=== PATIENT | female | born 1975 | race Caucasian/White ===

== ENCOUNTER 2016-07-19 15:30 | Emergency (ER) | payer OTHER ==
[~2016-07-19] VITALS: Ht 167.6 cm; Wt 72.0 kg
[~2016-07-19 15:30] MED LIST: CYM/30 PO; DOXE10CA PO; DULO60CA44 PO; GLC/500 PO; LEVO25TA5 PO; OMEP20TA PO; ONDA4TAB65 PO; OXYC1CAP5 PO; QUET1TAB34 PO; SENN-65 PO; TIZA2CAP PO
[2016-07-19 15:38] VITALS: TEMP 37.1; Ht 167.6 cm; Wt 72.0 kg
[2016-07-19 16:21] LABS: BASO % 0.5 %; BASO ABS # 0.03 K/uL (0-0.2); COMPLETE YES; HEMATOCRIT 41.4 % (37-47); IG% 0.5 %; LYMPH % 22.4 %; LYMPH ABS # 1.46 K/uL (1.2-3.4); MEAN CELL VOLUME 96.5 fL (80-100); MEAN CORPUSCULAR HEMOGLOBIN 32.2 pg (25-34); MEAN CORPUSCULAR HGB CONC 33.3 g/dl (32-36); MEAN PLATELET VOLUME 11.8 fL (7.4-10.4); MONO % 5.8 %; NEUT % 66.8 %; PLATELET COUNT 220 K/uL (130-400); RED BLOOD COUNT 4.29 M/uL (4.2-5.4); WHITE BLOOD COUNT 6.51 K/uL (4.8-10.8)
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
[2016-07-19 16:41] LABS: BUN/CREATININE RATIO 24.1 (10-20); CALCIUM 8.7 mg/dl (8.5-10.1); CREATININE 0.55 mg/dl (0.60-1.20); POTASSIUM 3.5 mmol/L (3.5-5.1)
[2016-07-19 16:44] LABS: ALB/GLOB RATIO 1.4 (0.9-2)
[2016-07-19 17:12] VITALS: BP 104/67; PULSE 80; O2SAT 100
[2016-08-02] MEDS ORDERED: POLY335025 PO (08:09)
[2016-08-02] MEDS ORDERED: LEVOIUD INT UTER (08:53)
== END 2016-07-19 17:38 | disposition home or self-care (01) ==
LOC: C.EDB 15:31 → C.EDC 17:38
DX: K62.5 Hemorrhage of anus and rectum (principal); G82.20 Paraplegia, unspecified; Z87.828 Personal history of other (healed) physical injury and trauma; F41.9 Anxiety disorder, unspecified; F31.9 Bipolar disorder, unspecified; E03.9 Hypothyroidism, unspecified; N31.9 Neuromuscular dysfunction of bladder, unspecified; Z80.9 Family history of malignant neoplasm, unspecified; Z83.3 Family history of diabetes mellitus; Z82.49 Family history of ischemic heart disease and other diseases of the circulatory system; Z79.899 Other long term (current) drug therapy

== ENCOUNTER 2016-08-02 15:38 | Emergency (ER) | payer OTHER ==
[~2016-08-02 15:38] MED LIST changes: -GLC/500 PO; +LEVOIUD INT UTER; -OMEP20TA PO; -ONDA4TAB65 PO; +POLY335025 PO; -QUET1TAB34 PO; -SENN-65 PO
[2016-08-02 15:48] VITALS: TEMP 36.8; Ht 167.6 cm
[2016-08-02] MEDS ORDERED: CEFTRIAXONE SOD INJ 1 GM ADDVIAL IV STA (16:13)
[2016-08-02] MEDS ORDERED: SODIUM CHLORIDE 0.9% 1000ML 1,000 ML IV STA (16:13)
[2016-08-02] MEDS ORDERED: FLUC150T PO (16:21)
[2016-08-02 16:39] LABS: BASO % 0.7 %; BASO ABS # 0.04 K/uL (0-0.2); COMPLETE YES; EOS % 6.3 %; HEMATOCRIT 39.4 % (37-47); IG% 1.1 %; LYMPH % 39.2 %; LYMPH ABS # 2.24 K/uL (1.2-3.4); MEAN CELL VOLUME 97.5 fL (80-100); MEAN CORPUSCULAR HEMOGLOBIN 31.9 pg (25-34); MEAN CORPUSCULAR HGB CONC 32.7 g/dl (32-36); MEAN PLATELET VOLUME 11.4 fL (7.4-10.4); MONO % 9.3 %; NEUT % 43.4 %; PLATELET COUNT 255 K/uL (130-400); RED BLOOD COUNT 4.04 M/uL (4.2-5.4); WHITE BLOOD COUNT 5.71 K/uL (4.8-10.8)
[2016-08-02] MEDS ORDERED: DOXE10CA PO (16:41)
[2016-08-02] MEDS ORDERED: OXYC-164 PO (16:41)
[2016-08-02] MEDS ORDERED: TPM/50 PO (16:41)
[2016-08-02] MEDS ORDERED: CYM30 PO (16:41)
[2016-08-02] MEDS ORDERED: CYM60 PO (16:41)
[2016-08-02] MEDS ORDERED: NITR100C6 PO (16:41)
[2016-08-02] MEDS ORDERED: LEVO50TA6 PO (16:41)
[2016-08-02 17:04] LABS: ALT/SGPT 18 U/L (12-78); BLOOD UREA NITROGEN 12 mg/dl (7-18); CALCIUM 8.9 mg/dl (8.5-10.1); CARBON DIOXIDE 28 mmol/L (21-32); CHLORIDE 105 mmol/L (98-107); CREATININE 0.54 mg/dl (0.60-1.20); GLUCOSE 53 mg/dl (70-99); POTASSIUM 3.5 mmol/L (3.5-5.1); SODIUM 140 mmol/L (136-145)
[2016-08-02 17:06] LABS: ALB/GLOB RATIO 1.3 (0.9-2); ALKALINE PHOSPHATASE 70 U/L (45-117); AST/SGOT 18 U/L (15-37)
[2016-08-02 17:40] VITALS: BP 103/64; PULSE 81; O2SAT 95
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
--- NOTE | 2016-08-02 17:50 | EMERGENCY ROOM VISIT NOTE ---
ED Visit Note First contact with patient: 16:05 I saw this patient in conjunction with Dylon Ayers PA-C. I agree with his decision-making and treatment plan.
[2016-08-02] MEDS ORDERED: IMT100 PO (22:28)
[2016-08-02] MEDS ORDERED: DICY10CA12 PO (22:28)
[2016-08-02] MEDS ORDERED: NRN800 PO (22:28)
== END 2016-08-02 17:44 | disposition home or self-care (01) ==
LOC: C.EDB 15:39 → C.EDC 17:44
DX: E86.0 Dehydration (principal); R19.7 Diarrhea, unspecified; N39.0 Urinary tract infection, site not specified; T83.511A Infection and inflammatory reaction due to indwelling urethral catheter, initial encounter; Y84.6 Urinary catheterization as the cause of abnormal reaction of the patient, or of later complication, without mention of misadventure at the time of the procedure; G82.20 Paraplegia, unspecified; F41.9 Anxiety disorder, unspecified; F31.9 Bipolar disorder, unspecified; E03.9 Hypothyroidism, unspecified; N31.9 Neuromuscular dysfunction of bladder, unspecified; Z80.9 Family history of malignant neoplasm, unspecified; Z83.3 Family history of diabetes mellitus; Z82.49 Family history of ischemic heart disease and other diseases of the circulatory system; Z79.899 Other long term (current) drug therapy

== ENCOUNTER → 2016-08-18 | Outpatient (CLI) | payer OTHER ==
[~2016-08-18] MED LIST changes: -CYM/30 PO; +CYM30 PO; +CYM60 PO; +DICY10CA12 PO; -DULO60CA44 PO; +FLUC150T PO; +IMT100 PO; -LEVO25TA5 PO; +LEVO50TA6 PO; +NITR100C6 PO; +NRN800 PO; +OXYC-164 PO; -OXYC1CAP5 PO; -TIZA2CAP PO; +TPM/50 PO
--- NOTE | 2016-08-18 14:21 | DIAGNOSTIC IMAGING REPORT ---
ULTRASOUND VENOUS DOPPLER ULTRASOUND LEFT LOWER EXTREMITY CLINICAL HISTORY: LEFT LEG EDEMA COMPARISON STUDY: No previous studies for comparison. FINDINGS: Real-time and color flow Doppler imaging were performed. Flow was seen within the femoral, popliteal and calf veins with no intraluminal thrombus demonstrated. The saphenous vein is patent. IMPRESSION: No evidence of left lower extremity DVT Electronically signed by: Heron Roach M.D. 08/18/2016 2:20 PM Dictated Date/Time: 08/18/2016 2:19 PM
== END | disposition home or self-care (01) ==
LOC: C.ULTRBC 08-16 13:37
PROVIDERS: ATTEND Internal Medicine
DX: R60.0 Localized edema (principal)

== ENCOUNTER 2016-08-21 14:17 | Emergency (ER) | payer OTHER ==
[~2016-08-21] VITALS: Ht 167.6 cm; Wt 68.0 kg
[2016-08-21 14:25] VITALS: TEMP 36.7; Ht 167.6 cm; Wt 68.0 kg
[2016-08-21] MEDS ORDERED: SODIUM CHLORIDE 0.9% 1000ML 1,000 ML IV ONE (14:39)
[2016-08-21] MEDS ORDERED: SODIUM CHLORIDE 0.9% 1000ML 1,000 ML IV STA (14:39)
--- NOTE | 2016-08-21 14:43 | EMERGENCY ROOM VISIT NOTE ---
History Report prepared by Mercedes: Alfredo Nolen Under the Supervision of: Dr. Kalin Gutiérrez M.D. First contact with patient: 14:30 Chief Complaint: RECTAL BLEEDING Stated Complaint: RECTAL BLEEDING 3+DAYS History of Present Illness The patient is a 40 year old female who presents to the Emergency Room with complaints of persistent rectal bleeding for the past several weeks. The patient was initially only bleeding after bowel movements, but for the past three days has been bleeding all the time. She notes bright red blood mixed in with her stools. She had one bowel movement this morning that was hard. She is scheduled to have a colonoscopy in three days. The patient notes some lightheadedness and nausea. She denies vomiting. 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 She has a history of C. Diff but was tested a few weeks ago and was negative. The patient is not on antibiotics or blood thinners. The patient lives alone. The patient does not have menstrual periods. Source of History: patient Onset: several weeks ago Position: other (rectal) Quality: other (bright red blood) Timing: other (persistent) Associated Symptoms: + nausea, No vomiting Review of Systems See HPI for pertinent positives & negatives. A total of 10 systems reviewed and were otherwise negative. Past Medical & Surgical Medical Problems: (1) Anxiety State Nos (2) Bipolar Disorder, Unspecified (3) C. difficile colitis (4) Hypothyroidism (5) Insertion of inferior vena caval filter (6) Nausea and vomiting (7) Neurogenic bladder (8) Paraplegia Nos (9) spinal fusion T4-T7 Surgical Problems: (1) History of back surgery (2) pain pump Old medical records were reviewed. Nurse's notes were reviewed and I agree with. Family History Cancer Diabetes mellitus Heart disease Hypertension Social History Smoking Status: Never Smoker Alcohol Use: none Drug Use: none Marital Status: single Housing Status: lives alone Occupation Status: disabled Current/Historical Medications Scheduled Duloxetine HCl (Duloxetine HCl), 30 MG PO DAILY Duloxetine HCl (Duloxetine HCl), 60 MG PO DAILY Gabapentin (Gabapentin), 800 MG PO TID Levonorgestrel (Iud) (Mirena), 20 MCG INT UTER UD Levothyroxine Sodium (Levothyroxine Sodium), 50 MCG PO DAILY Topiramate (Topamax), 50 MG PO HS Scheduled PRN Dicyclomine Hcl (Dicyclomine Hcl), 10 MG PO BID PRN for Abdomunal Pain Doxepin Hcl (Sinequan), 10 MG PO HS PRN for Itching Fluconazole (Diflucan), 150 MG PO WK PRN for Infection Oxycodone Hcl (Oxycodone Hcl), 10 MG PO Q6H PRN for Pain Polyethylene Glycol 3350 (Miralax), 17 GM PO DAILY PRN for Constipation Sumatriptan Succinate (Imitrex), 100 MG PO UD PRN for Migraine Allergies Coded Allergies: Morphine (Verified Allergy, Intermediate, "INCREASES PAIN", 08/21/16) Physical Exam Vital Signs Date Time Temp Pulse Resp B/P Pulse Ox O2 Delivery O2 Flow Rate FiO2 08/21/16 16:40 106 20 126/74 100 08/21/16 14:25 36.7 120 18 116/75 99 Room Air Physical Exam General: Non ill-appearing middle aged female in no acute distress, breathing comfortably on room air. Normal speech HEENT: Normal cephalic atraumatic. Pupils are equal round and reactive to light. Extraocular movements are intact. Oropharynx is pink with moist mucous membranes. No swelling of the mouth lips or tongue. Neck: Supple with a midline trachea. No meningeal signs or stiffness, no JVD or bruits. No Stridor. Chest: Clear to auscultation bilaterally. No wheezes or rhonchi. No increased work of breathing. Heart: regular rate and rhythm. Abdomen: Soft nontender, nondistended without rebound guarding or rigidity. Indwelling Young catheter in place. Extremities: No cyanosis clubbing or edema. No calf tenderness or assymetry Spine/Back. Non tender to palpation. No CVA tenderness Skin: Good turgor without rashes. Neurologic exam: Cranial nerves two through 12 are intact. Motor and sensation are intact and symmetrical throughout. Baseline lower extremity paraplegia from past accident. Rectal: (Performed in the presence of female nurse media intern). No active bleeding on external exam. At 12 O'clock there is suspicion for a fissure or irritation. Digital rectal exam revealed no masses, small amount of bloody mucous that is guaiac positive. Medical Decision & Procedures Laboratory Results 08/21/16 14:55 Red Blood Count 3.87, Mean Corpuscular Volume 96.9, Mean Corpuscular Hemoglobin 32.6, Mean Corpuscular Hemoglobin Concent 33.6, Mean Platelet Volume 11.1, Neutrophils (%) (Auto) 71.1, Lymphocytes (%) (Auto) 16.3, Monocytes (%) (Auto) 6.8, Eosinophils (%) (Auto) 5.0, Basophils (%) (Auto) 0.2, Neutrophils # (Auto) 8.60, Lymphocytes # (Auto) 1.97, Monocytes # (Auto) 0.82, Eosinophils # (Auto) 0.61, Basophils # (Auto) 0.03 08/21/16 14:55 Test 08/21/16 14:55 White Blood Count 12.10 K/uL (4.8-10.8) Red Blood Count 3.87 M/uL (4.2-5.4) Hemoglobin 12.6 g/dL (12.0-16.0) Hematocrit 37.5 % (37-47) Mean Corpuscular Volume 96.9 fL (80-100) Mean Corpuscular Hemoglobin 32.6 pg (25-34) Mean Corpuscular Hemoglobin Concent 33.6 g/dl (32-36) Platelet Count 245 K/uL (130-400) Mean Platelet Volume 11.1 fL (7.4-10.4) Neutrophils (%) (Auto) 71.1 % Lymphocytes (%) (Auto) 16.3 % Monocytes (%) (Auto) 6.8 % Eosinophils (%) (Auto) 5.0 % Basophils (%) (Auto) 0.2 % Neutrophils # (Auto) 8.60 K/uL (1.4-6.5) Lymphocytes # (Auto) 1.97 K/uL (1.2-3.4) Monocytes # (Auto) 0.82 K/uL (0.11-0.59) Eosinophils # (Auto) 0.61 K/uL (0-0.5) Basophils # (Auto) 0.03 K/uL (0-0.2) RDW Standard Deviation 47.1 fL (36.4-46.3) RDW Coefficient of Variation 13.4 % (11.5-14.5) Immature Granulocyte % (Auto) 0.6 % Immature Granulocyte # (Auto) 0.07 K/uL (0.00-0.02) Anion Gap 6.0 mmol/L (3-11) Est Creatinine Clear Calc Drug Dose 134.5 ml/min Estimated GFR () 138.5 Estimated GFR (Non- 119.5 BUN/Creatinine Ratio 28.3 (10-20) Calcium Level 8.7 mg/dl (8.5-10.1) Total Bilirubin 0.2 mg/dl (0.2-1) Direct Bilirubin < 0.1 mg/dl (0-0.2) Aspartate Amino Transf (AST/SGOT) 19 U/L (15-37) Alanine Aminotransferase (ALT/SGPT) 17 U/L (12-78) Alkaline Phosphatase 75 U/L (45-117) Total Protein 6.5 gm/dl (6.4-8.2) Albumin 3.8 gm/dl (3.4-5.0) Lipase 195 U/L (73-393) Human Chorionic Gonadotropin, Qual NEG (NEG) Laboratory studies as stated above per my review. Medications Administered Medications (Trade) Dose Ordered Sig/Melva Route Start Time Stop Time Status Last Admin Dose Admin Sodium Chloride 1,000 ml @ 999 mls/hr Q1H1M STAT IV 08/21/16 14:39 08/21/16 15:39 DC 08/21/16 15:04 999 MLS/HR Sodium Chloride (Nss 1000ml) 1,000 ml @ 150 mls/hr Q6H40M ONCE IV 08/21/16 14:39 08/21/16 17:09 DC 08/21/16 15:11 150 MLS/HR ED Course 1435: Past medical records reviewed. The patient was evaluated in room A11b, and a complete history and physical examination were performed. 1439: NSS 1000 ml @ 150 mls/hr, NSS 1000 ml @ 999 mls/hr. 1600: Rectal examination performed. 1610: Reassessed the patient. Discussed the findings with her. She verbalized understanding and agreement of the discharge instructions. The patient is ready for discharge. Medical Decision Differential diagnosis includes anemia, GI bleed, anal fissure, dehydration. This patient comes in as described above. She was placed in room A 11. She is here for treatment and evaluation of rectal bleeding. She's had this going on for about a month and is in fact scheduled for a colonoscopy on Tuesday. IV access established was hydrated normal saline. Multiple blood testing was obtained. A rectal exam was performed. There is a slight area that looks irritated and she may have had bleeding from there. There is no palpable hemorrhoid. There was minimal stool but there was a small amount of blood- tinged mucus. There is no fluctuance to suggest abscess. Her hemoglobin is stable at 12.6 and when checked several weeks ago, it was 12.9. She felt better after receiving IV fluids. I think the bleeding is coming from an area near the rectum. She's been stable with this and will be scoped on Tuesday. She does feel up to going home. She will be discharged home and return if: Worsening of symptoms, increasing bleeding, fever, pain, any new problems or concerns. She was happy with plan and discharged to home. Impression Primary Impression: Rectal bleed Scribe Attestation The scribe's documentation has been prepared under my direction and personally reviewed by me in its entirety. I confirm that the note above accurately reflects all work, treatment, procedures, and medical decision making performed by me. Departure Information Dispostion Home / Self-Care Referrals João Landaverde D.O. (PCP) Forms HOME CARE DOCUMENTATION FORM, IMPORTANT VISIT INFORMATION, WORK / SCHOOL INSTRUCTIONS Patient Instructions My [facility] Additional Instructions Rest Return if: worsening of symptoms, fever, increasing bleeing, any new problems or concerns Follow-up with your docotor this week for recheck. Keep your appointment on Tuesday for your colonoscopy
[2016-08-21 15:06] LABS: BASO % 0.2 %; BASO ABS # 0.03 K/uL (0-0.2); COMPLETE YES; HEMATOCRIT 37.5 % (37-47); IG% 0.6 %; LYMPH % 16.3 %; LYMPH ABS # 1.97 K/uL (1.2-3.4); MEAN CELL VOLUME 96.9 fL (80-100); MEAN CORPUSCULAR HEMOGLOBIN 32.6 pg (25-34); MEAN CORPUSCULAR HGB CONC 33.6 g/dl (32-36); MEAN PLATELET VOLUME 11.1 fL (7.4-10.4); MONO % 6.8 %; NEUT % 71.1 %; PLATELET COUNT 245 K/uL (130-400); RED BLOOD COUNT 3.87 M/uL (4.2-5.4)
[2016-08-21 15:24] LABS: ALT/SGPT 17 U/L (12-78); BLOOD UREA NITROGEN 15 mg/dl (7-18); BUN/CREATININE RATIO 28.3 (10-20); CALCIUM 8.7 mg/dl (8.5-10.1); CARBON DIOXIDE 29 mmol/L (21-32); CHLORIDE 106 mmol/L (98-107); CREATININE 0.52 mg/dl (0.60-1.20); GLUCOSE 76 mg/dl (70-99); POTASSIUM 3.8 mmol/L (3.5-5.1); SODIUM 141 mmol/L (136-145)
[2016-08-21 15:27] LABS: ALKALINE PHOSPHATASE 75 U/L (45-117); AST/SGOT 19 U/L (15-37)
[2016-08-21 15:38] LABS: PREG INTERNAL NEGATIVE QC NEG CLEAR BACKGROUND; PREG INTERNAL POSITIVE QC POS CONTROL LINE
[2016-08-21 16:40] VITALS: BP 126/74; PULSE 106; O2SAT 100
== END 2016-08-21 17:05 | disposition home or self-care (01) ==
LOC: C.EDB 14:18 → C.EDA 17:05
DX: K62.5 Hemorrhage of anus and rectum (principal); E03.9 Hypothyroidism, unspecified; Z83.3 Family history of diabetes mellitus; Z82.49 Family history of ischemic heart disease and other diseases of the circulatory system

== ENCOUNTER → 2017-09-05 | Outpatient (CLI) | payer OTHER ==
[~2017-09-05] MED LIST changes: +BUSP15TA70 PO; -DICY10CA12 PO; -DOXE10CA PO; +DULO60CA44 PO; -FLUC150T PO; -LEVOIUD INT UTER; -NITR100C6 PO; +ONDA4TAB46 PO; -POLY335025 PO; +TIZA4TAB8 PO; -TPM/50 PO
--- NOTE | 2017-09-05 10:11 | DIAGNOSTIC IMAGING REPORT ---
THORACIC SPINE MRI HISTORY: SYRINX OF SPINAL CORD TECHNIQUE: Multiplanar multisequence MRI of the thoracic spine was performed without the use of contrast. COMPARISON: Thoracic spine MRI 12/31/2015. FINDINGS: There is again noted extensive posterior fusion with pedicle screws and rods from T2 through T10. There is deformity and fusion of the T6-T8 vertebral bodies suggesting old postoperative/posttraumatic changes. Evaluation of the central canal at these levels is suboptimal due to the significant artifact from the fusion hardware. However, there is again noted a significantly abnormal appearing thoracic spinal cord from the T3-T9 level which demonstrates expansion and central cystic appearance. 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 This is similar to the prior study. Increased signal within the distal thoracic spinal cord is also not significantly changed. The conus terminates at the L1 level. No new paraspinal or epidural fluid collections. There is an intrathecal catheter with the tip terminating at the level of the T9 vertebral body. The previously identified enhancing focus at the tip is not well visualized on this noncontrast study. IMPRESSION: 1. Intrathecal catheter terminates at the T9 level. The proximal identified enhancing lesion at the tip is not well visualized on this noncontrast study. 2. Extensive posterior fusion of the thoracic spine from T2 through T10. 3. No significant change in the markedly abnormal thoracic spinal cord as described above. Electronically signed by: Phillip Quiroga M.D. 09/05/2017 10:10 AM Dictated Date/Time: 09/05/2017 10:02 AM
== END | disposition home or self-care (01) ==
LOC: C.MRIBC 08:50
PROVIDERS: ATTEND Specialist
DX: G95.0 Syringomyelia and syringobulbia (principal)

== ENCOUNTER 2020-04-17 23:56 | Inpatient (IN) ==
[2020-04-18] MEDS ORDERED: SODIUM CHLORIDE 0.9% 500 ML IV ONE ×2 (00:39→01:38)
[2020-04-18] MEDS ORDERED: HYDROmorphone INJ 0.5 MG/0.5 ML SYR IV STA (00:39)
[2020-04-18 01:00] LABS: Basophils # (auto) 0.01 K/uL (0-0.2); Basophils % (auto) 0.1 %; Eosinophils # (auto) 0.34 K/uL (0-0.5); Eosinophils % (auto) 4.6 %; Hematocrit (blood only) 22.3 % (37-47); Hemoglobin 7.3 g/dL (12.0-16.0); Immature Granulocytes # (auto) 0.03 K/uL (0.00-0.02); Immature Granulocytes % (auto) 0.4 %; Lymphocytes # (auto) 1.01 K/uL (1.2-3.4); Lymphocytes % (auto) 13.7 %; Mean Corpuscular Hemoglobin 33.2 pg (25-34); Mean Corpuscular Hgb Conc 32.7 g/dL (32-36); Mean Corpuscular Volume 101.4 fL (80-100); Mean Platelet Volume 10.8 fL (7.4-10.4); Monocytes # (auto) 0.84 K/uL (0.11-0.59); Monocytes % (auto) 11.4 %; Neutrophils # (auto) 5.14 K/uL (1.4-6.5); Neutrophils % (auto) 69.8 %; Platelet Count 206 K/uL (130-400); RDW Coefficient of Variation 13.6 % (11.5-14.5); RDW Standard Deviation 49.7 fL (36.4-46.3); White Blood Count 7.37 K/uL (4.8-10.8)
[2020-04-18 01:17] LABS: Alanine Aminotransferase 13 U/L (12-78); Albumin Level 2.8 gm/dl (3.4-5.0); Aspartate Aminotransferase 14 U/L (15-37); BUN Creatinine Ratio 12.2 (10-20); Blood Urea Nitrogen 6 mg/dl (7-18); Calcium 8.3 mg/dl (8.5-10.1); Carbon Dioxide 32 mmol/L (21-32); Chloride 104 mmol/L (98-107); Est GFR (African American) 136.4; Est GFR (Non-African American) 117.7; Glucose 118 mg/dl (70-99); Magnesium 1.9 mg/dl (1.8-2.4); Potassium 3.7 mmol/L (3.5-5.1); Sodium 138 mmol/L (136-145)
[2020-04-18 01:20] LABS: Albumin Globulin Ratio 0.9 (0.9-2); Alkaline Phosphatase 65 U/L (45-117); Bilirubin,Total 0.3 mg/dl (0.2-1); Globulin 3.1 gm/dl (2.5-4.0); Total Protein 5.9 gm/dl (6.4-8.2)
[2020-04-18 01:45] LABS: Appearance Urine Clear (Clear); Bacteria Urine Automated 4+ (Negative); Bilirubin Urine Negative (Negative); Blood Urine Negative (Negative); Color Urine Dark Yellow; Glucose Urine UA Negative (Negative); Ketones Urine Negative (Negative); Leukocyte Esterase Urine 2+ (Negative); Nitrite Urine Positive (Negative); RBC Urine Automated 0-4 /hpf (0-4); Urobilinogen Urine Positive (Negative); WBC Urine Automated >30 /hpf (0-5); pH Urine 8.5 (4.5-7.5)
[2020-04-18 01:49] LABS: Basophilic Stippling 1+
[2020-04-18 01:52] LABS: Protein Urine Negative (Negative); Sulfosalicylic Acid Urine Negative (Negative)
[2020-04-18] MEDS ORDERED: DAPTOmycin 500 MG in SYRINGE 0 ML IV ONE (01:59)
[2020-04-18] MEDS ORDERED: MEROPENEM 500 MG in SYRINGE 0 ML IV STA (02:03)
[2020-04-18] MEDS ORDERED: MEROPENEM CONSULT ACITVE PRN (02:03)
[2020-04-18] MEDS ORDERED: SODIUM CHLORIDE 0.9% 250 ML IV PRN ×3 (02:53→05:48)
[2020-04-18] MEDS ORDERED: NITROGLYCERIN SL 0.4 MG/TAB TAB SL PRN (05:48)
[2020-04-18] MEDS ORDERED: HYDROmorphone INJ 0.5 MG/0.5 ML SYR IV PRN (05:48)
[2020-04-18] MEDS ORDERED: ONDANSETRON INJ 2 MG/ML 2 ML VIAL IV PRN (05:48)
[2020-04-18] MEDS ORDERED: PIPERACILL/TAZOBAC CONSULT ACTIVE PRN (05:48)
[2020-04-18] MEDS ORDERED: tiZANidine HCL 4 MG TABLET PO PRN (05:48)
[2020-04-18] MEDS ORDERED: SUMAtriptan succinate 100 MG TAB PO PRN (05:48)
[2020-04-18] MEDS ORDERED: oxyCODONE HCL IR 5 MG TAB (IMMEDIATE RELEASE) PO PRN (06:11)
[2020-04-18] MEDS ORDERED: FUROSEMIDE 20 MG in SYRINGE 0 ML IV ONE (06:15)
[2020-04-18] MEDS ORDERED: INFLUENZA ADMINISTRATION CHARGE ONE (06:25)
[2020-04-18] MEDS ORDERED: INFLUENZA VACCINE HIGH DOSE 65+ 0.7 ML SYR IM ONE (06:25)
[2020-04-18] MEDS ORDERED: PATIENT'S HEIGHT AND/OR WEIGHT NEEDED SCH (06:30)
--- NOTE | 2020-04-18 06:45 | Emergency Department Note ---
Impression & Plan Anemia, UTI (urinary tract infection) ED Provider Note NAME: DOROTA MCDANIEL AGE: 44 SEX: F ARRIVES VIA: Ambulance INFORMANT: [Patient] ED PROVIDER(S): Bruna Allen DO CHIEF COMPLAINT: Fever PLAN: [facility]: [facility]Good] MEDICAL DECISION MAKING: This is a 44-year-old female patient status post total abdominal hysterectomy who presents to the emergency department with a fever and abdominal pain, neck pain or back pain. The patient was afebrile on presentation with no leukocytosis. The patient had a mildly elevated lactate. He was noted to be significantly anemic with a hemoglobin of 7. Just 6 days ago, her hemoglobin was 11.9. This was her preoperative value. Patient denies any significant persistent blood loss from the vagina. On physical exam, the surgical incision is well-healing and the abdomen is soft and she has no specific tenderness upon exam. There are good bowel sounds. Urinalysis is positive. The patient was treated with IV daptomycin and meropenem. She was bolused with normal saline solution which support her blood pressure and she was transfused with 1 unit of packed red blood cells. Triage Nursing notes reviewed and agree them. [Prior medical records reviewed] as well as records from [facility]. Vital Signs: reviewed and remarkable for tachycardia Differential diagnosis: Postsurgical intra-abdominal infection, postsurgical wound infection, UTI, pneumonia, COVID-19 ER treatment provided: IV normal saline IV daptomycin IV meropenem IV packed red blood cells Diagnostics interpreted by me: ECG: [none] Cardiac Monitoring: Sinus tachycardia at 124 Laboratory studies: [See below] Imaging studies: As per my interpretation Chest x-ray: No acute pulmonary infiltrates or consolidations HPI: 44/F arrives for evaluation of fever. The patient underwent total abdominal hysterectomy and removal of masses 2 days ago at [facility]. She was discharged from the hospital after approximately 24-hour stay and went home. She felt that she may have been discharged too soon and is unable to care for self at home. She describes having persistent abdominal pain, back pain, chest, neck pain since discharge. Patient has been taking her temperature at home and was concerned when it elevated above 100.5. The patient felt pounding in her ears and visual streaks of light in her eyes when her eyes were closed. ROS: See above HPI for pertinent positives & negatives. A total of [10] systems reviewed and were otherwise negative. PAST MEDICAL HISTORY:[See Below] PAST SURGICAL HISTORY:[See Below] SOCIAL HISTORY:[See Below] HOME MEDICATIONS:See list ALLERGIES:Morphine VITALS:[See Below] PHYSICAL EXAMINATION: HEENT: Head - normocephalic and atraumatic Pupils are equal, round, and reactive to light. Extraocular eye muscles are intact, and sclera are anicteric. Nose - moist nasal mucosa without discharge. Mouth - moist buccal mucosa. Oropharynx is nonerythematous and there is no tonsillar exudate or edema noted. Neck: Supple; no JVD, nuchal rigidity, cervical lymphadenopathy, or auscultated bruits. Heart: Tachycardic rate and rhythm. There is a normal S1 and S2 with no murmurs, clicks, or gallops appreciated. Lungs: Clear to auscultation bilaterally with no wheezes, rales, or rhonchi. Abdomen: Soft, completely nontender, nondistended, with good bowel sounds. Midline abdominal incision appears to be well-healing with no surrounding signs of erythema or warmth. There are no palpable pulsatile masses or hepatosplenomegaly. There is no guarding, rigidity, or rebound noted. Extremities: No evidence of cyanosis, clubbing, or edema. There are easily palpable peripheral pulses. Skin: warm and dry with good turgor and no rashes. ED COURSE: Times/Reassessments: 0020: Patient was evaluated in room C6. Order was placed f or continuous cardiac monitoring. The patient remained in a sinus tachycardia at a rate of 124. A septic protocol was performed. Patient was bolused with 500 cc of normal saline solution. A portable chest x-ray was performed as described above. Urine specimen was obtained. The patient was treated with IV meropenem and IV daptomycin. Second bolus of normal saline was given. The patient was noted to be significantly anemic with a hemoglobin of 7. She was typed and crossed for 1 unit of packed red blood cells. A consent for transfusion was completed and the patient was transfused with packed red blood cells. I have personally spent greater than 50 minutes of critical care time in the direct management of this patient. This includes bedside care, interpretation of diagnostic studies, and testing, discussion with consultants, patient, and family members, and other required patient management activities. This 50 minutes is in excess of all separately billable procedures. Bruna Allen DO Past Med/Surg History Medical History (Updated 04/18/20 @ 06:58 by Bruna Allen DO) H/O Clostridium difficile infection Hypothyroidism Insertion of inferior vena caval filter (Unknown) "2004 " On 04/13/11 19:37 Basil Miranda wrote "2004 " Paraplegia Raynaud disease Surgical History History of back surgery Social History Smoking Status: Never smoker Hx Alcohol Use: No Hx Substance Use: No Preferred Language: Monegasque Communication Ability: Effective Visual Impairment: Limited Hearing Ability: Normal Riding Double Required: No Beliefs That Will Affect Care: None marital status: single Current Living Situation: Alone current occupational status: disabled Feels Safe at Home: Yes Assistive Devices: Glasses and Wheelchair Allergies Allergies Allergy/AdvReac Type Severity Reaction Status Date / Time morphine AdvReac Intermediate "INCREASES Verified 04/18/20 00:26 PAIN" Home Meds Home Medications Medication Instructions Recorded Confirmed gabapentin 800 mg PO QAM 01/31/18 04/18/20 levothyroxine 75 mcg PO QAM 01/31/18 04/18/20 oxycodone 5 mg PO Q6H PRN 01/31/18 04/18/20 sumatriptan succinate 100 mg PO UD PRN 01/31/18 04/18/20 ibuprofen 600 mg PO DIRECTED PRN 06/25/18 04/18/20 bupropion HCl 100 mg PO DAILY 03/08/19 04/18/20 baclofen 0 mcg CONTINUOUS INTRATHECAL 04/18/20 04/18/20 INFUSION CONTINOUS desvenlafaxine succinate [Pristiq] 50 mg PO DAILY 04/18/20 04/18/20 tizanidine 4 mg PO DIRECTED PRN 04/18/20 04/18/20 Results & Data (ED) Vital Signs Vital Signs - 24 hr 04/18/20 00:02 04/18/20 00:55 04/18/20 01:10 Temperature 37.5 C Temperature Source Oral Pulse Rate 124 H 107 H Pulse Rate from SpO2 Sensor 107 H Respiratory Rate 20 19 Blood Pressure 111/62 98/55 L Blood Pressure Mean 78 65 Pulse Oximetry 99 100 100 Oxygen Delivery Method Room Air Room Air Sepsis Recent Fever Within 48 Hours No Sepsis New/Unexplained Change in Mental Status No Sepsis Action Taken by Nursing No Action Required 04/18/20 01:30 04/18/20 02:00 04/18/20 02:30 Temperature Temperature Source Pulse Rate 106 H 104 H 108 H Pulse Rate from SpO2 Sensor 106 H 105 H 111 H Respiratory Rate 16 13 18 Blood Pressure 107/60 105/69 108/60 Blood Pressure Mean 92 79 68 Pulse Oximetry 99 100 98 Oxygen Delivery Method Sepsis Recent Fever Within 48 Hours Sepsis New/Unexplained Change in Mental Status Sepsis Action Taken by Nursing 04/18/20 03:00 04/18/20 03:30 Temperature Temperature Source Pulse Rate 101 H 100 H Pulse Rate from SpO2 Sensor 100 H 100 H Respiratory Rate 15 25 H Blood Pressure 102/64 102/56 L Blood Pressure Mean 72 65 Pulse Oximetry 100 97 Oxygen Delivery Method Sepsis Recent Fever Within 48 Hours Sepsis New/Unexplained Change in Mental Status Sepsis Action Taken by Nursing Laboratory Data Result diagrams: 04/18/20 00:49 04/18/20 00:49 Lab Results 04/18/20 04/18/20 04/18/20 Range/Units 00:49 00:49 00:49 WBC 7.37 (4.8-10.8) K/uL RBC 2.20 L (4.2-5.4) M/uL Hgb 7.3 L (12.0-16.0) g/dL Hct 22.3 L (37-47) % MCV 101.4 H (80-100) fL MCH 33.2 (25-34) pg MCHC 32.7 (32-36) g/dL RDW Std Deviation 49.7 H (36.4-46.3) fL RDW Coeff of Lisa 13.6 (11.5-14.5) % Plt Count 206 (130-400) K/uL MPV 10.8 H (7.4-10.4) fL Immature Gran % (Auto) 0.4 % Neut % (Auto) 69.8 % Lymph % (Auto) 13.7 % [place] % (Auto) 11.4 % Eos % (Auto) 4.6 % Baso % (Auto) 0.1 % Neut # (Auto) 5.14 (1.4-6.5) K/uL Lymph # (Auto) 1.01 L (1.2-3.4) K/uL [place] # (Auto) 0.84 H (0.11-0.59) K/uL Eos # (Auto) 0.34 (0-0.5) K/uL Baso # (Auto) 0.01 (0-0.2) K/uL Immature Gran # (Auto) 0.03 H (0.00-0.02) K/uL Basophilic Stippling 1+ Sodium 138 (136-145) mmol/L Potassium 3.7 (3.5-5.1) mmol/L Chloride 104 (98-107) mmol/L Carbon Dioxide 32 (21-32) mmol/L Anion Gap 2.0 L (3-11) BUN 6 L (7-18) mg/dl Creatinine 0.50 L (0.6-1.2) mg/dl Est Cr Clr Drug Dosing Not Reportable Est GFR ( Amer) 136.4 Est GFR (Non-Af Amer) 117.7 BUN/Creatinine Ratio 12.2 (10-20) Glucose 118 H (70-99) mg/dl Lactate 2.4 H* (0.4-2.0) mmol/L Calcium 8.3 L (8.5-10.1) mg/dl Magnesium 1.9 (1.8-2.4) mg/dl Total Bilirubin 0.3 (0.2-1) mg/dl AST 14 L (15-37) U/L ALT 13 (12-78) U/L Alkaline Phosphatase 65 (45-117) U/L Total Protein 5.9 L (6.4-8.2) gm/dl Albumin 2.8 L (3.4-5.0) gm/dl Globulin 3.1 (2.5-4.0) gm/dl Albumin/Globulin Ratio 0.9 (0.9-2) Urine Color Urine Appearance (Clear) Urine pH (4.5-7.5) Ur Specific [place] (1.000-1.030) Urine Protein (Negative) Urine Glucose (UA) (Negative) Urine Ketones (Negative) Urine Blood (Negative) Urine Nitrite (Negative) Urine Bilirubin (Negative) Urine Urobilinogen (Negative) Ur Leukocyte Esterase (Negative) Urine WBC (Auto) (0-5) /hpf Urine RBC (Auto) (0-4) /hpf U Hyaline Cast (Auto) (0-5) /lpf U Epithel Cells (Auto) (0-5) /lpf Urine Bacteria (Auto) (Negative) Blood Type Antibody Screen Crossmatch 04/18/20 04/18/20 04/18/20 Range/Units 01:05 02:19 02:43 WBC (4.8-10.8) K/uL RBC (4.2-5.4) M/uL Hgb (12.0-16.0) g/dL Hct (37-47) % MCV (80-100) fL MCH (25-34) pg MCHC (32-36) g/dL RDW Std Deviation (36.4-46.3) fL RDW Coeff of Lisa (11.5-14.5) % Plt Count (130-400) K/uL MPV (7.4-10.4) fL Immature Gran % (Auto) % Neut % (Auto) % Lymph % (Auto) % [place] % (Auto) % Eos % (Auto) % Baso % (Auto) % Neut # (Auto) (1.4-6.5) K/uL Lymph # (Auto) (1.2-3.4) K/uL [place] # (Auto) (0.11-0.59) K/uL Eos # (Auto) (0-0.5) K/uL Baso # (Auto) (0-0.2) K/uL Immature Gran # (Auto) (0.00-0.02) K/uL Basophilic Stippling Sodium (136-145) mmol/L Potassium (3.5-5.1) mmol/L Chloride (98-107) mmol/L Carbon Dioxide (21-32) mmol/L Anion Gap (3-11) BUN (7-18) mg/dl Creatinine (0.6-1.2) mg/dl Est Cr Clr Drug Dosing Est GFR ( Amer) Est GFR (Non-Af Amer) BUN/Creatinine Ratio (10-20) Glucose (70-99) mg/dl Lactate 1.3 (0.4-2.0) mmol/L Calcium (8.5-10.1) mg/dl Magnesium (1.8-2.4) mg/dl Total Bilirubin (0.2-1) mg/dl AST (15-37) U/L ALT (12-78) U/L Alkaline Phosphatase (45-117) U/L Total Protein (6.4-8.2) gm/dl Albumin (3.4-5.0) gm/dl Globulin (2.5-4.0) gm/dl Albumin/Globulin Ratio (0.9-2) Urine Color Dark Yellow Urine Appearance Clear (Clear) Urine pH 8.5 H (4.5-7.5) Ur Specific [place] 1.020 (1.000-1.030) Urine Protein Negative (Negative) Urine Glucose (UA) Negative (Negative) Urine Ketones Negative (Negative) Urine Blood Negative (Negative) Urine Nitrite Positive A (Negative) Urine Bilirubin Negative (Negative) Urine Urobilinogen Positive H (Negative) Ur Leukocyte Esterase 2+ H (Negative) Urine WBC (Auto) >30 H (0-5) /hpf Urine RBC (Auto) 0-4 (0-4) /hpf U Hyaline Cast (Auto) 10-30 H (0-5) /lpf U Epithel Cells (Auto) 10-20 H (0-5) /lpf Urine Bacteria (Auto) 4+ H (Negative) Blood Type O Positive Antibody Screen NEGATIVE Crossmatch See Detail Administered Medications Ondansetron HCl (Ondansetron Inj 2 Mg/Ml 2 Ml Vial) 4 mg IV Q6H PRN PRN Reason: Nausea Stop: 05/18/20 05:47 Last Admin: 04/18/20 06:15 Dose: 4 mg Documented by: [id number] Discontinued Medications Hydromorphone HCl (Hydromorphone Inj 0.5 Mg/0.5 Ml Syr) 0.5 mg IV NOW STA Stop: 04/18/20 00:40 Last Admin: 04/18/20 01:08 Dose: 0.5 mg Documented by: [id number] Sodium Chloride (Nss) 500 mls @ 999 mls/hr IV .Q31M ONE Stop: 04/18/20 01:09 Last Infusion: 04/18/20 02:08 Dose: 0 mls/hr Documented by: [id number] Admin: 04/18/20 01:08 Dose: 999 mls/hr Documented by: [id number] Sodium Chloride (Nss) 500 mls @ 999 mls/hr IV .Q31M ONE Stop: 04/18/20 02:08 Last Infusion: 04/18/20 02:48 Dose: 0 mls/hr Documented by: [id number] Admin: 04/18/20 02:08 Dose: 999 mls/hr Documented by: [id number] Daptomycin 500 mg/ Syringe 10 mls @ 5 mls/min IV ONE ONE; Protocol Stop: 04/18/20 02:00 Last Admin: 04/18/20 02:33 Dose: 5 mls/min Documented by: [id number] Meropenem 500 mg/ Syringe 10 mls @ 2 mls/min IV NOW STA; Protocol Stop: 04/18/20 02:07 Last Admin: 04/18/20 02:33 Dose: 2 mls/min Documented by: [id number] Discharge Plan Visit Data Chief Complaint: Abdominal Pain Stated Complaint: VAGINAL HEMORRHAGE/ABDOMINAL PAIN ED Provider: Bruna Allen Discharge Problem: Anemia, UTI (urinary tract infection) Patient Disposition: Admitted As Inpatient Discharge Instructions Interventions: ED Discharge Assessment Last Done: 04/18/20 05:09 Discharge Problem: Anemia Qualifiers: Anemia type: unspecified type Qualified Code(s): D64.9 - Anemia, unspecified UTI (urinary tract infection) Qualifiers: Urinary tract infection type: catheter-associated UTI Indwelling urinary catheter type: indwelling urethral catheter Encounter type: initial encounter Q ualified Code(s): T83.511A - Infection and inflammatory reaction due to indwelling urethral catheter, initial encounter
[2020-04-18] MEDS ORDERED: FUROSEMIDE 40 MG/4 ML VIAL IV ONE (07:00)
--- NOTE | 2020-04-18 07:19 | History and Physical Report ---
DATE OF ADMISSION: 04/18/2020 CHIEF COMPLAINT: Body ache. HISTORY OF PRESENT ILLNESS: This is a 44-year-old female with past medical history significant for hypothyroidism, goiter, history of paraplegia T4 level , neurogenic bladder, Raynaud's disease, migraine headache, depression, recent diagnosis of ovarian neoplasm, status post surgery, comes with generalized pain. The patient was recently diagnosed with ovarian neoplasm, status post exploratory laparotomy, total abdominal hysterectomy, bilateral salpingectomy and oophorectomy on 04/15/2020 at [facility], and she was discharged the next day to the home. The patient says she lives alone. She is in a wheelchair. She gets caregivers 2 times a week, her father lives in the town, but after going home, she was not feeling well, she was having poor appetite, headache, neck pain, back pain, not doing good. She noticed some oozing of blood from the surgical site and also in the vaginal area, but not too significant. She did not move her bowels since she got discharged. As she was not feeling well, she came to the ER today and was found to have hemoglobin 7.3 and also she had some low-grade fever and UA was positive. Preop hemoglobin was 11.9. Currently resting comfortably. Denies any headache, no blurred visions, no earache, no runny nose, no sore throat, no loss of sense of smell or taste. No dysphagia, no cough, no chest pain, no shortness of breath. Nauseous, but no vomiting. No hematuria. No rash. ALLERGIES: MORPHINE. PAST MEDICAL HISTORY: As mentioned above. PAST SURGICAL HISTORY: Colonoscopy, EGDs, exploratory laparotomy, flexible sigmoidoscopy, IVC filter placement, wisdom tooth removal, spinal fusion 4-7 vertebrae, total abdominal hysterectomy with removal of tubes. MEDICATIONS: The patient is on baclofen intrathecal infusion, bupropion 100 mg p.o. daily, Pristiq 50 mg p.o. daily, gabapentin 800 mg p.o. a.m., ibuprofen 600 mg p.r.n., levothyroxine 75 mcg p.o. daily, oxycodone 5 mg p.o. q. 6 hours p.r.n., sumatriptan 100 mg p.r.n., tizanidine 4 mg p.o. p.r.n. FAMILY HISTORY: Significant for maternal aunt has breast cancer, mother has hypothyroidism, maternal grandmother has heart disorder, paternal grandfather had blood cancer, father has heart disease, menierie's disease, and prostate cancer. SOCIAL HISTORY: Single. No smoking, no alcohol, no drug use. REVIEW OF SYSTEMS: As per HPI. Rest of review of systems negative. PHYSICAL EXAMINATION: GENERAL: The patient is of moderate build, not in acute distress. VITAL SIGNS: Temperature 37, pulse 91, respiratory rate 20, blood pressure 120/61, oxygen 100% on room air. HEENT: Pupils are equal, round, and reactive to light. Oral mucosa moist. NECK: No neck masses. Supple. CARDIOVASCULAR: S1, S2 heard, regular rate and rhythm, no murmur, no gallop. RESPIRATORY SYSTEM: Normal AP diameter. No accessory muscle use. No wheezing, no crackles. ABDOMEN: Soft, bowel sounds present. No distention. CENTRAL NERVOUS SYSTEM: No sensation below [id number]. Paraplegia EXTREMITIES: No edema, no erythema. LABORATORY DATA: WBC 7.3, hemoglobin 7.3, hematocrit 22.3, platelets 206. Sodium 138, potassium 3.7, chloride 104, bicarbonate 32, BUN 6, creatinine 0.5, serum glucose 118, lactate 1.3, calcium 8.3, magnesium 1.9, total bilirubin 0.3, AST 14, ALT 13, alkaline phosphatase 65. Urinalysis positive for nitrite and leukocyte esterase, +4 bacteria. SARS-CoV-2 antigen rapid test negative. Chest x-ray, no acute findings. ASSESSMENT AND PLAN: This is a 44-year-old female who recently had surgery for an ovoid mass, who comes here because of not feeling well and found to have anemia and urinary tract infection. 1. Acute blood loss anemia, most likely postop. No obvious signs of bleeding. Pre op hemoglobin was 11.9, current hemoglobin is 7.3. Will give 2 units of PRBC and monitor. If any concerns, we will get a CT scan of the abdomen and pelvis. 2. Urinary tract infection. Starting on cefepime. We will follow the cultures. 3. Ovarian mass status post recent surgery. Follow up with her doctors. 4. Paraplegia wheelchair bound, lives alone. PT and OT prior to discharge. Social service to help with discharge planning. 5. Hypothyroidism. Continue Synthroid. 6. Depression. Continue bupropion. 7. Deep venous thrombosis prophylaxis, sequential compression devices. DISPOSITION: Closely monitor in the med tele. Level 1 full code. Expect to discharge back home versus placement. Social Service to help with discharge planning. HORACIO
[2020-04-18] MEDS ORDERED: PIPERACILLIN/TAZOBACTAM 3.375 GM in DEXTROSE 5% 100 ML IV ONE (08:00)
[2020-04-18] MEDS ORDERED: BACLOFEN PAIN PUMP INT SPINAL SCH (08:05)
[2020-04-18] MEDS: LEVOTHYROXINE SODIUM 75 MCG TABLET PO SCH (08:21)
[2020-04-18] MEDS: GABAPENTIN 800 MG TAB PO SCH (08:22)
[2020-04-18] MEDS: buPROPion HCl 100 MG TABLET PO SCH (08:22)
[2020-04-18] MEDS: SODIUM CHLORIDE 0.9% 1000ML 1,000 ML IV SCH (08:39)
--- NOTE | 2020-04-18 08:46 | XRay Report ---
XR chest 1V portable HISTORY: SEPSIS COMPARISON: Chest 03/08/2019. FINDINGS: Extensive thoracic spinal fusion hardware is again noted. The hardware is intact. The lungs are clear. The heart is normal in size. No pleural effusions. No pneumothorax. IMPRESSION: No acute process. ACT 112: Negative or not required by law. Electronically signed by: Phillip Quiroga M.D. 04/18/2020 8:44 AM
[2020-04-18] MEDS: PIPERACILLIN/TAZOBACTAM 3.375 GM in DEXTROSE 5% 100 ML IV SCH ×2 (11:51→21:15)
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
[2020-04-18] MEDS: bisacodyL 10 MG SUPP PR PRN (18:20)
[2020-04-18] MEDS ORDERED: POLYETHYLENE (MIRALAX) 17 GM PACK PO STA (19:38)
--- NOTE | 2020-04-18 21:28 | Electrocardiogram Report ---
Test Reason : Blood Pressure : / mmHG Vent. Rate : 121 BPM Atrial Rate : 121 BPM P-R Int : 130 ms QRS Dur : 072 ms QT Int : 314 ms P-R-T Axes : 078 055 075 degrees QTc Int : 445 ms Sinus tachycardia Low voltage QRS Cannot rule out Inferior infarct , age undetermined T wave abnormality, consider anterior ischemia Abnormal ECG When compared with ECG of 08-MAR-2019 14:02, Non-specific change in ST segment in Lateral leads Nonspecific T wave abnormality now evident in Lateral leads Confirmed by Mega Rosales ([id number]) on 04/18/2020 9:28:08 PM Referred By: REFERRED SELF Confirmed By:Mega Rosales
[2020-04-18] MEDS ORDERED: Nursing to Pharmacy Communication SCH (21:30)
[2020-04-19] MEDS: SODIUM CHLORIDE 0.9% 1000ML 1,000 ML IV SCH ×2 (00:53→14:13)
[2020-04-19] MEDS: ACETAMINOPHEN 325 MG TAB PO PRN ×3 (00:53→17:06)
[2020-04-19] MEDS: PIPERACILLIN/TAZOBACTAM 3.375 GM in DEXTROSE 5% 100 ML IV SCH ×3 (05:03→19:42)
[2020-04-19] MEDS: LEVOTHYROXINE SODIUM 75 MCG TABLET PO SCH (06:00)
[2020-04-19 06:19] LABS: Basophils # (auto) 0.01 K/uL (0-0.2); Basophils % (auto) 0.1 %; Eosinophils # (auto) 0.34 K/uL (0-0.5); Eosinophils % (auto) 4.7 %; Hematocrit (blood only) 28.5 % (37-47); Hemoglobin 9.3 g/dL (12.0-16.0); Immature Granulocytes # (auto) 0.05 K/uL (0.00-0.02); Immature Granulocytes % (auto) 0.7 %; Lymphocytes # (auto) 0.93 K/uL (1.2-3.4); Lymphocytes % (auto) 12.7 %; Mean Corpuscular Hemoglobin 31.6 pg (25-34); Mean Corpuscular Hgb Conc 32.6 g/dL (32-36); Mean Corpuscular Volume 96.9 fL (80-100); Mean Platelet Volume 11.8 fL (7.4-10.4); Monocytes # (auto) 0.44 K/uL (0.11-0.59); Neutrophils # (auto) 5.53 K/uL (1.4-6.5); Neutrophils % (auto) 75.8 %; Platelet Count 222 K/uL (130-400); RDW Standard Deviation 56.5 fL (36.4-46.3); Red Blood Count 2.94 M/uL (4.2-5.4)
[2020-04-19 06:46] LABS: Calcium 8.4 mg/dl (8.5-10.1); Creatinine Clr Calc Pharmacy 158.2 ml/min; Est GFR (African American) 140.2; Magnesium 1.8 mg/dl (1.8-2.4); Potassium 3.5 mmol/L (3.5-5.1)
[2020-04-19] MEDS: buPROPion HCl 100 MG TABLET PO SCH (07:44)
[2020-04-19] MEDS: GABAPENTIN 800 MG TAB PO SCH (07:44)
[2020-04-19] MEDS: bisacodyL 10 MG SUPP PR PRN (17:05)
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
[2020-04-19] MEDS: POLYETHYLENE (MIRALAX) 17 GM PACK PO PRN (20:09)
[2020-04-20] MEDS: ACETAMINOPHEN 325 MG TAB PO PRN ×2 (02:32→16:12)
[2020-04-20] MEDS: SODIUM CHLORIDE 0.9% 1000ML 1,000 ML IV SCH ×2 (03:27→16:13)
[2020-04-20] MEDS: PIPERACILLIN/TAZOBACTAM 3.375 GM in DEXTROSE 5% 100 ML IV SCH ×3 (04:12→19:25)
[2020-04-20] MEDS: LEVOTHYROXINE SODIUM 75 MCG TABLET PO SCH (05:58)
[2020-04-20] MEDS: GABAPENTIN 800 MG TAB PO SCH (07:26)
[2020-04-20] MEDS: buPROPion HCl 100 MG TABLET PO SCH (07:26)
[2020-04-20] MEDS: POLYETHYLENE (MIRALAX) 17 GM PACK PO PRN (07:27)
[2020-04-20 07:48] LABS: Basophils # (auto) 0.01 K/uL (0-0.2); Basophils % (auto) 0.2 %; Eosinophils # (auto) 0.38 K/uL (0-0.5); Eosinophils % (auto) 8.3 %; Hematocrit (blood only) 29.6 % (37-47); Hemoglobin 9.5 g/dL (12.0-16.0); Immature Granulocytes # (auto) 0.08 K/uL (0.00-0.02); Immature Granulocytes % (auto) 1.8 %; Lymphocytes % (auto) 24.1 %; Mean Corpuscular Hemoglobin 31.4 pg (25-34); Mean Corpuscular Hgb Conc 32.1 g/dL (32-36); Mean Corpuscular Volume 97.7 fL (80-100); Mean Platelet Volume 10.8 fL (7.4-10.4); Monocytes # (auto) 0.59 K/uL (0.11-0.59); Monocytes % (auto) 12.9 %; Neutrophils # (auto) 2.41 K/uL (1.4-6.5); Neutrophils % (auto) 52.7 %; Platelet Count 245 K/uL (130-400); RDW Coefficient of Variation 15.1 % (11.5-14.5); RDW Standard Deviation 53.9 fL (36.4-46.3); Red Blood Count 3.03 M/uL (4.2-5.4); White Blood Count 4.57 K/uL (4.8-10.8)
[2020-04-20] MEDS: bisacodyL 10 MG SUPP PR PRN (22:28)
[2020-04-21] MEDS: PIPERACILLIN/TAZOBACTAM 3.375 GM in DEXTROSE 5% 100 ML IV SCH (04:12)
[2020-04-21] MEDS: ACETAMINOPHEN 325 MG TAB PO PRN ×2 (04:13→23:20)
[2020-04-21] MEDS: SODIUM CHLORIDE 0.9% 1000ML 1,000 ML IV SCH ×2 (04:28→17:38)
[2020-04-21] MEDS: LEVOTHYROXINE SODIUM 75 MCG TABLET PO SCH (05:25)
[2020-04-21] MEDS: GABAPENTIN 800 MG TAB PO SCH (07:21)
[2020-04-21] MEDS: buPROPion HCl 100 MG TABLET PO SCH (07:21)
[2020-04-21 08:26] LABS: Basophils # (auto) 0.01 K/uL (0-0.2); Basophils % (auto) 0.1 %; Eosinophils # (auto) 0.56 K/uL (0-0.5); Eosinophils % (auto) 8.2 %; Hematocrit (blood only) 31.3 % (37-47); Hemoglobin 10.1 g/dL (12.0-16.0); Immature Granulocytes # (auto) 0.08 K/uL (0.00-0.02); Immature Granulocytes % (auto) 1.2 %; Lymphocytes % (auto) 17.5 %; Mean Corpuscular Hemoglobin 31.1 pg (25-34); Mean Corpuscular Hgb Conc 32.3 g/dL (32-36); Mean Corpuscular Volume 96.3 fL (80-100); Monocytes # (auto) 0.88 K/uL (0.11-0.59); Monocytes % (auto) 12.8 %; Neutrophils # (auto) 4.13 K/uL (1.4-6.5); Neutrophils % (auto) 60.2 %; Platelet Count 269 K/uL (130-400); Red Blood Count 3.25 M/uL (4.2-5.4); White Blood Count 6.86 K/uL (4.8-10.8)
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
[2020-04-21] MEDS: CIPROFLOXACIN 500 MG TAB PO SCH ×2 (12:07→20:27)
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
[2020-04-22] MEDS: LEVOTHYROXINE SODIUM 75 MCG TABLET PO SCH (06:15)
[2020-04-22] MEDS: SODIUM CHLORIDE 0.9% 1000ML 1,000 ML IV SCH (06:16)
[2020-04-22 07:51] LABS: Basophils # (auto) 0.01 K/uL (0-0.2); Basophils % (auto) 0.1 %; Eosinophils # (auto) 0.51 K/uL (0-0.5); Eosinophils % (auto) 7.1 %; Hematocrit (blood only) 31.7 % (37-47); Hemoglobin 10.2 g/dL (12.0-16.0); Immature Granulocytes # (auto) 0.13 K/uL (0.00-0.02); Immature Granulocytes % (auto) 1.8 %; Lymphocytes % (auto) 22.3 %; Mean Corpuscular Hemoglobin 31.4 pg (25-34); Mean Corpuscular Hgb Conc 32.2 g/dL (32-36); Mean Corpuscular Volume 97.5 fL (80-100); Mean Platelet Volume 10.3 fL (7.4-10.4); Monocytes # (auto) 0.84 K/uL (0.11-0.59); Monocytes % (auto) 11.7 %; Neutrophils # (auto) 4.07 K/uL (1.4-6.5); Platelet Count 289 K/uL (130-400); RDW Coefficient of Variation 14.9 % (11.5-14.5); RDW Standard Deviation 53.5 fL (36.4-46.3); Red Blood Count 3.25 M/uL (4.2-5.4); White Blood Count 7.16 K/uL (4.8-10.8)
[2020-04-22] MEDS: buPROPion HCl 100 MG TABLET PO SCH (07:56)
[2020-04-22] MEDS: GABAPENTIN 800 MG TAB PO SCH (07:56)
[2020-04-22] MEDS: CIPROFLOXACIN 500 MG TAB PO SCH (07:56)
[2020-04-22 08:30] LABS: BUN Creatinine Ratio 34.8 (10-20); Blood Urea Nitrogen 10 mg/dl (7-18); Calcium 8.6 mg/dl (8.5-10.1); Carbon Dioxide 26 mmol/L (21-32); Chloride 109 mmol/L (98-107); Creatinine Clr Calc Pharmacy 263.2 ml/min; Est GFR (African American) > 150.0; Est GFR (Non-African American) 142.4; Glucose 80 mg/dl (70-99); Potassium 3.4 mmol/L (3.5-5.1); Sodium 141 mmol/L (136-145)
[2020-04-22] MEDS ORDERED: POTASSIUM CHLORIDE CRTAB 20 MEQ TABCR PO STA (08:40)
[2020-04-22] MEDS: ACETAMINOPHEN 325 MG TAB PO PRN (09:01)
[2020-04-22] MEDS: bisacodyL 10 MG SUPP PR PRN (10:52)
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
[2020-04-22] MEDS ORDERED: cephALEXin 500 MG CAP PO SCH (14:00)
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
== END 2020-04-22 12:53 | disposition home or self-care (01) | DRG 699 ==
LOC: ED 23:56 → 2W 04-18 03:55

== ENCOUNTER 2021-08-12 19:33 | Observation (INO) ==
[2021-08-12] MEDS ORDERED: SODIUM CHLORIDE 0.9% 1000ML 1,000 ML IV ONE (20:34)
--- NOTE | 2021-08-12 20:37 | Emergency Department Note ---
Impression & Plan Acute flank pain, UTI (urinary tract infection), Chest pain ED Provider Note NAME: DOROTA MCDANIEL AGE: 45 SEX: F : 1975 ARRIVES VIA: Walk-In INFORMANT: Patient ED PROVIDER(S): Maurice Casarez DO CHIEF COMPLAINT: right chest wall pain HPI: Patient is a 45-year-old female who presents the ER for right mid to lower chest wall pain in the mid axillary line. She has a past medical history paraplegic with ovarian cancer, and IVC filter. She denies any headache or change in vision. Pain has been intermittent several days ago and then has been constant today. 10 out of 10 sharp pressure. No belly pain that she is aware of but she has no feeling in her abdomen. She has a Young in place but denies any urinary symptoms. No other exacerbating or remitting factors. She is slightly concerned that she may have a blood component and notes that she does have an IVC filter but is not positioned correctly. ROS: See above HPI for pertinent positives & negatives. A total of 10 systems reviewed and were otherwise negative. PAST MEDICAL HISTORY:See Below PAST SURGICAL HISTORY:See Below FAMILY HISTORY:See Below SOCIAL HISTORY:See Below HOME MEDICATIONS:See Below ALLERGIES:See Below VITALS:See Below PHYSICAL EXAMINATION: GENERAL: Sitting up in bed, alert, disheveled, holding right mid abdomin EYE EXAM: normal conjunctiva. PERRL and EOM's grossly intact. OROPHARYNX: mucous membranes are moist NECK: supple, no nuchal rigidity, no adenopathy, non-tender LUNGS: Clear to auscultation. Normal chest wall mechanics HEART: Tachycardic, S1 normal and S2 normal ABDOMEN: abdomen soft, non-tender, pain pump in left lower quadrant, normo- active bowel sounds, no masses, no rebound or guarding. UPPER EXTREMITIES: upper extremities are grossly normal. LOWER EXTREMITIES: No pitting edema. NEURO EXAM: Normal sensorium moving UE but unable to move lower extremities MEDICAL DECISION MAKING: Patient is a 45-year-old female who presents ER for above-stated complaint. IV was established blood work was obtained. Labs show no significant leukocytosis or anemia. BMP with LFTs bilirubin and lipase is unremarkable. Troponin was negative. UA with nitrates whites leuks and +[address] abdomen pelvis showed no acute pathology with exception of a lot of constipation. CT of the chest was unremarkable as well. Due to patient's vasculature was unable to obtain a IV larger than a 22 in the foot and consequently unable to perform a CT angio of the chest. As patient notes her IVC filter was not positioned appropriately unable to perform angio of the chest may benefit from a V/Q study and duplex of the lower extremities. Duplexes were ordered. Patient was given IV antibiotics as well secondary to the UTI question pylo as the pain does come slightly around her back however there is no fever for white count to support t his. Heart rate trended down with IV fluids from 140s to the 70s. EKG was unremarkable. Triage Nursing notes reviewed. Limited review of prior medical records performed Vital Signs: reviewed and remarkable for tachy Differential diagnosis: Differential diagnoses includes but is not limited to acute coronary syndrome, myocardial infarction, pericarditis, pulmonary embolus, aortic dissection, pneumonia, pneumothorax, musculoskeletal, shingles, esophageal. ER treatment provided: See below Diagnostics interpreted by me: ECG: Sinus tachycardia rate of 115 Normal axis No PVCs Poor baseline inferior leads QTC 456 EKG #2 Sinus rhythm rate of 76 Normal axis T wave inversion V1 and V2 QTC 423 No significant change from March 2020 Cardiac Monitoring: An order was placed for continuous cardiac monitoring. The monitor shows a rate of 110 with sinus rhythm. Laboratory studies: As stated above and show below. Imaging studies: CT chest abdomen pelvis were unremarkable. Duplex was ordered and pending Consultation(s): Discussed with [facility] for further evaluation Procedures: none Critical Care: None Past Med/Surg History Medical History (Updated 08/13/21 @ 00:33 by Maurice Casarez DO) H/O Clostridium difficile infection Hypothyroidism Insertion of inferior vena caval filter (Unknown) "2004 " On 04/13/11 19:37 Basil Miranda wrote "2004 " Neurogenic bladder Open wound Paraplegia Raynaud disease Surgical History History of back surgery Social History Smoking Status: Never smoker Hx Alcohol Use: No Hx Substance Use: No Preferred Language: Bruneian Communication Ability: Effective Visual Impairment: Limited Hearing Ability: Normal 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 Beliefs That Will Affect Care: None marital status: Single Current Living Situation: Alone current occupational status: disabled Feels Safe at Home: Yes Assistive Devices: Wheelchair Allergies Allergies Allergy/AdvReac Type Severity Reaction Status Date / Time morphine AdvReac Intermediate "INCREASES Verified 08/12/21 23:17 PAIN" Home Meds Home Medications Medication Instructions Recorded Confirmed gabapentin 800 mg tablet 800 mg PO HS 01/31/18 08/12/21 oxycodone 5 mg tablet 5 mg PO Q6H PRN 01/31/18 08/12/21 sumatriptan succinate 100 mg tablet 100 mg PO UD PRN 01/31/18 08/12/21 ibuprofen 200 mg capsule 600 mg PO DIRECTED PRN 06/25/18 08/12/21 baclofen 500 mcg/mL intrathecal 0 mcg CONTINUOUS INTRATHECAL 04/18/20 08/12/21 solution INFUSION CONTINOUS tizanidine 4 mg tablet 4 mg PO DIRECTED PRN 04/18/20 08/12/21 levothyroxine 25 mcg tablet 25 mcg PO DAILY 08/12/21 08/12/21 Results & Data (ED) Vital Signs Vital Signs - 24 hr 08/12/21 19:35 Temperature 36.4 C L Temperature Source Temporal Artery Scan Pulse Rate 146 H Respiratory Rate 18 Respiratory Effort / Characteristics Non-Labored Spontaneous Respiratory Depth Normal Blood Pressure 138/75 Blood Pressure Mean 96 Pulse Oximetry 99 Oxygen Delivery Method Room Air Sepsis Recent Fever Within 48 Hours No Sepsis New/Unexplained Change in Mental Status No Sepsis Action Taken by Nursing No Action Required Laboratory Data Result diagrams: 08/12/21 22:08 08/12/21 23:00 Lab Results 08/12/21 08/12/21 08/12/21 Range/Units 21:36 22:07 22:08 WBC 6.70 (4.8-10.8) K/uL RBC 4.31 (4.2-5.4) M/uL Hgb 14.2 (12.0-16.0) g/dL Hct 41.7 (37-47) % MCV 96.8 (80-100) fL MCH 32.9 (25-34) pg MCHC 34.1 (32-36) g/dL RDW Std Deviation 43.8 (36.4-46.3) fL RDW Coeff of Lisa 12.4 (11.5-14.5) % Plt Count 173 (130-400) K/uL MPV 12.2 H (7.4-10.4) fL Immature Gran % (Auto) 0.3 % Neut % (Auto) 73.9 % Lymph % (Auto) 20.0 % [place] % (Auto) 5.7 % Eos % (Auto) 0.1 % Baso % (Auto) 0.0 % Neut # (Auto) 4.95 (1.4-6.5) K/uL Lymph # (Auto) 1.34 (1.2-3.4) K/uL [place] # (Auto) 0.38 (0.11-0.59) K/uL Eos # (Auto) 0.01 (0-0.5) K/uL Baso # (Auto) 0.00 (0-0.2) K/uL Immature Gran # (Auto) 0.02 (0.00-0.02) K/uL D-Dimer Cancelled Sodium (136-145) mmol/L Potassium (3.5-5.1) mmol/L Chloride (98-107) mmol/L Carbon Dioxide (21-32) mmol/L Anion Gap (3-11) BUN (6-23) mg/dl Creatinine (0.6-1.2) mg/dl Est Cr Clr Drug Dosing ml/min Est GFR ( Amer) ml/min Est GFR (Non-Af Amer) ml/min BUN/Creatinine Ratio (10-20) Glucose (70-99(Fasting)) mg/dl Calcium (8.5-10.1) mg/dl Total Bilirubin (0.2-1.0) mg/dl AST (13-39) U/L ALT (7-52) U/L Alkaline Phosphatase (34-104) U/L Troponin I (0-0.04) ng/ml Total Protein (6.0-8.3) gm/dl Albumin (3.4-5.0) gm/dl Globulin (2.5-4.0) gm/dl Albumin/Globulin Ratio (0.9-2) Lipase (11-82) U/L Urine Color Yellow Urine Appearance Clear (Clear) Urine pH 5.5 (4.5-7.5) Ur Specific [place] 1.026 (1.000-1.030) Urine Protein Negative (Negative) Urine Glucose (UA) Negative (Negative) Urine Ketones Negative (Negative) Urine Blood Trace H (Negative) Urine Nitrite Positive A (Negative) Urine Bilirubin Negative (Negative) Urine Urobilinogen Negative (Negative) Ur Leukocyte Esterase 2+ H (Negative) Urine WBC (Auto) >30 H (0-5) /hpf Urine RBC (Auto) 10-30 H (0-4) /hpf U Hyaline Cast (Auto) 10-30 H (0-5) /lpf U Epithel Cells (Auto) >30 H (0-5) /lpf Urine Bacteria (Auto) 2+ H (Negative) POC Ur Test (NEG) 08/12/21 08/12/21 08/12/21 Range/Units 22:08 23:00 23:00 WBC (4.8-10.8) K/uL RBC (4.2-5.4) M/uL Hgb (12.0-16.0) g/dL Hct (37-47) % MCV (80-100) fL MCH (25-34) pg MCHC (32-36) g/dL RDW Std Deviation (36.4-46.3) fL RDW Coeff of Lisa (11.5-14.5) % Plt Count (130-400) K/uL MPV (7.4-10.4) fL Immature Gran % (Auto) % Neut % (Auto) % Lymph % (Auto) % [place] % (Auto) % Eos % (Auto) % Baso % (Auto) % Neut # (Auto) (1.4-6.5) K/uL Lymph # (Auto) (1.2-3.4) K/uL [place] # (Auto) (0.11-0.59) K/uL Eos # (Auto) (0-0.5) K/uL Baso # (Auto) (0-0.2) K/uL Immature Gran # (Auto) (0.00-0.02) K/uL D-Dimer Cancelled Sodium 140 (136-145) mmol/L Potassium TNP (3.5-5.1) mmol/L Chloride 104 (98-107) mmol/L Carbon Dioxide 29 (21-32) mmol/L Anion Gap 7 (3-11) BUN 16 (6-23) mg/dl Creatinine 0.45 L (0.6-1.2) mg/dl Est Cr Clr Drug Dosing 162.5 ml/min Est GFR ( Amer) 140.3 ml/min Est GFR (Non-Af Amer) 121.0 ml/min BUN/Creatinine Ratio 35.6 H (10-20) Glucose 102 H (70-99(Fasting)) mg/dl Calcium 10.1 (8.5-10.1) mg/dl Total Bilirubin 0.3 (0.2-1.0) mg/dl AST TNP (13-39) U/L ALT 11 (7-52) U/L Alkaline Phosphatase 83 (34-104) U/L Troponin I < 0.03 (0-0.04) ng/ml Total Protein 7.7 (6.0-8.3) gm/dl Albumin 4.8 (3.4-5.0) gm/dl Globulin 2.9 (2.5-4.0) gm/dl Albumin/Globulin Ratio 1.7 (0.9-2) Lipase 31 (11-82) U/L Urine Color Urine Appearance (Clear) Urine pH (4.5-7.5) Ur Specific [place] (1.000-1.030) Urine Protein (Negative) Urine Glucose (UA) (Negative) Urine Ketones (Negative) Urine Blood (Negative) Urine Nitrite (Negative) Urine Bilirubin (Negative) Urine Urobilinogen (Negative) Ur Leukocyte Esterase (Negative) Urine WBC (Auto) (0-5) /hpf Urine RBC (Auto) (0-4) /hpf U Hyaline Cast (Auto) (0-5) /lpf U Epithel Cells (Auto) (0-5) /lpf Urine Bacteria (Auto) (Negative) POC Ur Test (NEG) 08/12/21 Range/Units Unknown WBC (4.8-10.8) K/uL RBC (4.2-5.4) M/uL Hgb (12.0-16.0) g/dL Hct (37-47) % MCV (80-100) fL MCH (25-34) pg MCHC (32-36) g/dL RDW Std Deviation (36.4-46.3) fL RDW Coeff of Lisa (11.5-14.5) % Plt Count (130-400) K/uL MPV (7.4-10.4) fL Immature Gran % (Auto) % Neut % (Auto) % Lymph % (Auto) % [place] % (Auto) % Eos % (Auto) % Baso % (Auto) % Neut # (Auto) (1.4-6.5) K/uL Lymph # (Auto) (1.2-3.4) K/uL [place] # (Auto) (0.11-0.59) K/uL Eos # (Auto) (0-0.5) K/uL Baso # (Auto) (0-0.2) K/uL Immature Gran # (Auto) (0.00-0.02) K/uL D-Dimer Sodium (136-145) mmol/L Potassium (3.5-5.1) mmol/L Chloride (98-107) mmol/L Carbon Dioxide (21-32) mmol/L Anion Gap (3-11) BUN (6-23) mg/dl Creatinine (0.6-1.2) mg/dl Est Cr Clr Drug Dosing ml/min Est GFR ( Amer) ml/min Est GFR (Non-Af Amer) ml/min BUN/Creatinine Ratio (10-20) Glucose (70-99(Fasting)) mg/dl Calcium (8.5-10.1) mg/dl Total Bilirubin (0.2-1.0) mg/dl AST (13-39) U/L ALT (7-52) U/L Alkaline Phosphatase (34-104) U/L Troponin I (0-0.04) ng/ml Total Protein (6.0-8.3) gm/dl Albumin (3.4-5.0) gm/dl Globulin (2.5-4.0) gm/dl Albumin/Globulin Ratio (0.9-2) Lipase (11-82) U/L Urine Color Urine Appearance (Clear) Urine pH (4.5-7.5) Ur Specific [place] (1.000-1.030) Urine Protein (Negative) Urine Glucose (UA) (Negative) Urine Ketones (Negative) Urine Blood (Negative) Urine Nitrite (Negative) Urine Bilirubin (Negative) Urine Urobilinogen (Negative) Ur Leukocyte Esterase (Negative) Urine WBC (Auto) (0-5) /hpf Urine RBC (Auto) (0-4) /hpf U Hyaline Cast (Auto) (0-5) /lpf U Epithel Cells (Auto) (0-5) /lpf Urine Bacteria (Auto) (Negative) POC Ur Test NEG (NEG) Administered Medications Discontinued Medications Sodium Chloride (Nss 1000ml) 1,000 mls @ 999 mls/hr IV .[id number] ONE Stop: 08/12/21 21:34 Last Admin: 08/12/21 23:37 Dose: 999 mls/hr Documented by: [id number] Cefepime HCl (Maxipime) 2,000 mg in 20 mls @ 5 mls/min IV NOW STA; Protocol Stop: 08/12/21 22:05 Last Admin: 08/12/21 23:37 Dose: 5 mls/min Documented by: [id number] Discharge Plan Visit Data Chief Complaint: Abdominal Pain Stated Complaint: PAIN R SIDE OF ABD FOR A WEEK ED Provider: Maurice Casarez Discharge Problem: Acute flank pain, UTI (urinary tract infection), Chest pain Forms Stand Alone Forms: [facility] [employer] Prescriptions Prescriptions: No Action tizanidine 4 mg tablet 4 mg PO DIRECTED PRN (Reason: Pain) RF: 0 baclofen 500 mcg/mL Solution 0 mcg continuous intrathecal infusion CONTINOUS RF: 0 sumatriptan succinate 100 mg tablet 100 mg PO UD PRN (Reason: Migraine Headache) RF: 0 gabapentin 800 mg tablet 800 mg PO HS RF: 0 oxycodone 5 mg tablet 5 mg PO Q6H PRN (Reason: Pain) RF: 0 ibuprofen 200 mg Capsule 600 mg PO DIRECTED PRN (Reason: Pain) RF: 0 levothyroxine 25 mcg tablet 25 mcg PO DAILY RF: 0 Referrals Referrals: João Landaverde DO [Primary Care Provider] - Discharge Problem: UTI (urinary tract infection) Qualifiers: Urinary tract infection type: site unspecified Hematuria presence: with he maturia Qualified Code(s): N39.0 - Urinary tract infection, site not specified Chest pain Qualifiers: Chest pain type: unspecified Qualified Code(s): R07.9 - Chest pain, unspecified
[2021-08-12 21:52] LABS: Appearance Urine Clear (Clear); Bacteria Urine Automated 2+ (Negative); Bilirubin Urine Negative (Negative); Blood Urine Trace (Negative); Color Urine Yellow; Epithelial Cell Urine Auto >30 /lpf (0-5); Glucose Urine UA Negative (Negative); Ketones Urine Negative (Negative); Leukocyte Esterase Urine 2+ (Negative); Nitrite Urine Positive (Negative); Protein Urine Negative (Negative); Specific Gravity Urine 1.026 (1.000-1.030); Urobilinogen Urine Negative (Negative); WBC Urine Automated >30 /hpf (0-5); pH Urine 5.5 (4.5-7.5)
[2021-08-12] MEDS ORDERED: CEFEPIME 2,000 MG/20 ML VIAL IV STA (22:02)
[2021-08-12 22:16] LABS: Eosinophils # (auto) 0.01 K/uL (0-0.5); Eosinophils % (auto) 0.1 %; Hematocrit (blood only) 41.7 % (37-47); Hemoglobin 14.2 g/dL (12.0-16.0); Immature Granulocytes # (auto) 0.02 K/uL (0.00-0.02); Immature Granulocytes % (auto) 0.3 %; Lymphocytes # (auto) 1.34 K/uL (1.2-3.4); Mean Corpuscular Hemoglobin 32.9 pg (25-34); Mean Corpuscular Hgb Conc 34.1 g/dL (32-36); Mean Corpuscular Volume 96.8 fL (80-100); Mean Platelet Volume 12.2 fL (7.4-10.4); Monocytes # (auto) 0.38 K/uL (0.11-0.59); Monocytes % (auto) 5.7 %; Neutrophils # (auto) 4.95 K/uL (1.4-6.5); Neutrophils % (auto) 73.9 %; Platelet Count 173 K/uL (130-400); RDW Coefficient of Variation 12.4 % (11.5-14.5); RDW Standard Deviation 43.8 fL (36.4-46.3); Red Blood Count 4.31 M/uL (4.2-5.4)
[2021-08-12 22:38] LABS: Troponin I < 0.03 ng/ml (0-0.04)
[2021-08-12 22:47] LABS: Alanine Aminotransferase 11 U/L (7-52); Albumin Globulin Ratio 1.7 (0.9-2); Albumin Level 4.8 gm/dl (3.4-5.0); Alkaline Phosphatase 83 U/L (34-104); Anion Gap 7 (3-11); BUN Creatinine Ratio 35.6 (10-20); Bilirubin,Total 0.3 mg/dl (0.2-1.0); Blood Urea Nitrogen 16 mg/dl (6-23); Calcium 10.1 mg/dl (8.5-10.1); Carbon Dioxide 29 mmol/L (21-32); Chloride 104 mmol/L (98-107); Creatinine Clr Calc Pharmacy 162.5 ml/min; Est GFR (African American) 140.3 ml/min; Globulin 2.9 gm/dl (2.5-4.0); Glucose 102 mg/dl (70-99(Fasting)); Lipase 31 U/L (11-82); Sodium 140 mmol/L (136-145); Total Protein 7.7 gm/dl (6.0-8.3)
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
[2021-08-13] MEDS ORDERED: LACTATED RINGER'S 1,000 ML IV ONE (00:52)
[2021-08-13 01:59] LABS: Magnesium 1.6 mg/dl (1.7-2.4); Potassium 3.8 mmol/L (3.5-5.1)
[2021-08-13 02:04] LABS: Partial Thromboplastin Ratio 0.9
[2021-08-13 02:09] LABS: D Dimer 1070 ug/L FEU (0-500)
[2021-08-13] MEDS ORDERED: MAGNESIUM SULFATE / D5W 1 GM/100 ML BAG IV ONE (02:21)
[2021-08-13] MEDS ORDERED: Heparin IV Adult Wt-Based Low-Dose *NO* Bolus Protocol IV SCH (02:22)
[2021-08-13] MEDS ORDERED: DOCUSATE SODIUM/SENNA 50/8.6MG TAB PO STA (02:25)
[2021-08-13] MEDS ORDERED: KETOROLAC TROMETHAMINE 15 MG/ML VIAL IV ONE ×2 (02:27→05:00)
[2021-08-13] MEDS ORDERED: HEPARIN SODIUM/DEXTROSE 25,000 UNITS/500 ML BAG IV SCH (02:30)
[2021-08-13] MEDS ORDERED: LORazepam 2 MG/1 ML VIAL IV PRN (03:00)
[2021-08-13] MEDS ORDERED: KETOROLAC TROMETHAMINE 15 MG/ML VIAL IV PRN (03:00)
[2021-08-13] MEDS ORDERED: tiZANidine HCL 4 MG TABLET PO PRN (03:00)
[2021-08-13] MEDS ORDERED: oxyCODONE HCL IR 5 MG TAB (IMMEDIATE RELEASE) PO PRN (03:00)
[2021-08-13] MEDS ORDERED: ACETAMINOPHEN 325 MG TAB PO PRN (03:00)
[2021-08-13] MEDS ORDERED: POLYETHYLENE (MIRALAX) 17 GM PACK PO PRN (03:00)
[2021-08-13] MEDS ORDERED: PROMETHAZINE HCL 12.5 MG in SODIUM CHLORIDE 0.9% 50 ML IV PRN (03:00)
[2021-08-13] MEDS ORDERED: BACLOFEN PAIN PUMP IT PRN (03:00)
[2021-08-13] MEDS ORDERED: GABAPENTIN 800 MG TAB PO SCH ×2 (05:00→21:00)
[2021-08-13 05:34] LABS: Basophils # (auto) 0.01 K/uL (0-0.2); Basophils % (auto) 0.1 %; Eosinophils # (auto) 0.01 K/uL (0-0.5); Eosinophils % (auto) 0.1 %; Hematocrit (blood only) 41.6 % (37-47); Hemoglobin 13.7 g/dL (12.0-16.0); Immature Granulocytes # (auto) 0.03 K/uL (0.00-0.02); Immature Granulocytes % (auto) 0.4 %; Lymphocytes % (auto) 25.2 %; Mean Corpuscular Hemoglobin 32.3 pg (25-34); Mean Corpuscular Hgb Conc 32.9 g/dL (32-36); Mean Corpuscular Volume 98.1 fL (80-100); Mean Platelet Volume 11.7 fL (7.4-10.4); Monocytes # (auto) 0.46 K/uL (0.11-0.59); Monocytes % (auto) 6.8 %; Neutrophils # (auto) 4.53 K/uL (1.4-6.5); Neutrophils % (auto) 67.4 %; Platelet Count 223 K/uL (130-400); RDW Coefficient of Variation 12.5 % (11.5-14.5); RDW Standard Deviation 44.5 fL (36.4-46.3); Red Blood Count 4.24 M/uL (4.2-5.4); White Blood Count 6.74 K/uL (4.8-10.8)
[2021-08-13 05:58] LABS: Anion Gap 2 (3-11); BUN Creatinine Ratio 34.3 (10-20); Blood Urea Nitrogen 12 mg/dl (6-23); Calcium 9.7 mg/dl (8.5-10.1); Carbon Dioxide 32 mmol/L (21-32); Chloride 106 mmol/L (98-107); Est GFR (African American) > 150.0 ml/min; Est GFR (Non-African American) 131.4 ml/min; Glucose 96 mg/dl (70-99(Fasting)); Potassium 3.7 mmol/L (3.5-5.1); Sodium 140 mmol/L (136-145)
[2021-08-13] MEDS ORDERED: LEVOTHYROXINE SODIUM 25 MCG TABLET PO SCH (06:30)
--- NOTE | 2021-08-13 07:26 | Ultrasound Report ---
BILATERAL LOWER EXTREMITY VENOUS DOPPLER HISTORY: Lower extremity swelling. ? dvt COMPARISON STUDY: None. FINDINGS: There is normal compressibility, flow, and augmentation within the bilateral lower extremit y deep venous systems. IMPRESSION: No DVT within the right or left lower extremity. ACT 112: Negative or not required by law. Electronically signed by: Phillip Quiroga M.D. 08/13/2021 7:24 AM
[2021-08-13] MEDS: CEFEPIME 2,000 MG in SYRINGE 0 ML IV SCH ×2 (07:43→16:56)
--- NOTE | 2021-08-13 08:14 | CT Scan Report ---
CT OF THE CHEST WITHOUT IV CONTRAST CLINICAL HISTORY: Right chest wall pain. COMPARISON STUDY: Chest CT December 30, 2020. TECHNIQUE: Axial images of the chest were obtained without IV contrast. Images were reviewed in the axial, sagittal, and coronal planes. IV contrast was not administered for this examination. Automat ed exposure control was utilized for the study. A dose lowering technique was utilized adhering to t he principles of ALARA. FINDINGS: No enlarged axillary, mediastinal or hilar lymph nodes are present. Size of the heart is n ormal. No pericardial effusion is present. There is no pneumomediastinum. No pneumothorax or pleural effusion is noted. Subpleural right middle lobe and right lower lobe opacity reflects scarring. This is unchanged. No consolidation to suggest pneumonia. Central airways are patent. There are no suspici ous pulmonary nodules. No acute rib or thoracic spine fracture is noted. Multilevel postoperative fin dings within the thoracic spine are noted. Intracanalicular catheter is in place. IVC filter is incid entally noted. Abdomen and pelvis CT will be reported separately. IMPRESSION: No acute process within the chest. No change since CT of December 30, 2020. ACT 112: Negative or not required by law. Electronically signed by: Syed Crabtree M.D. 08/13/2021 8:13 AM
--- NOTE | 2021-08-13 08:21 | CT Scan Report ---
ABDOMEN AND PELVIS CT WITHOUT CONTRAST CT DOSE: 511.97 mGy.cm HISTORY: Right-sided abdominal pain. TECHNIQUE: Multiaxial CT images of the abdomen and pelvis were performed without contrast. A dose lo wering technique was utilized adhering to the principles of ALARA. COMPARISON STUDY: Abdomen and pelvis CT 01/07/2016. FINDINGS: There is [id number] compression of L4, unchanged. There is again noted intrathecal ca theter which is looped within the thoracolumbar spine with the pain pump of the left lower quadrant a bdominal wall. This is also unchanged. Partially visualized posterior fusion hardware within the thor acic spine. Chronic deformity/displacement of the coccyx is again noted. A few linear scarlike densit y within the right lower lobe. No pneumoperitoneum. No pneumatosis. Advanced degenerative changes aga in noted within the hips. There are few punctate calcified granulomas within the liver. There are few capsular splenic calcifications also noted. The unenhanced adrenal glands, pancreas, gallbladder, ki dneys are unremarkable. No retroperitoneal lymphadenopathy. Normal caliber abdominal aorta. An IVC fi lter is unchanged in position. No pelvic free fluid. The bladder is decompressed by Young catheter. I nterval hysterectomy. Suboptimal evaluation for bowel pathology due to the lack of intravenous and or al contrast. However, there is no definite bowel wall thickening or obstruction. The appendix is not identified with certainty. There are no inflammatory changes noted within the right lower quadrant. T here is moderate well-formed stool seen within the colon. IMPRESSION: 1. No definite bowel wall thickening or obstruction. 2. Moderate well-formed stool within the proximal colon. 3. No renal or ureteral stones. No hydronephrosis. 4. Interval hysterectomy. 5. Additional findings as described above. ACT 112: Negative or not required by law. Electronically signed by: Phillip Quiroga M.D. 08/13/2021 8:19 AM
--- NOTE | 2021-08-13 10:50 | Nuclear Medicine Report ---
NM pul perfusion CLINICAL HISTORY: back pain, tachy ro PE Technique: Perfusion imaging was performed in multiple projections after the intravenous injection of 5.5 mCi of Tc-99m labeled macroaggregated albumin (MAA). Comparison: Comparison is made to CT chest 08/12/2021 FINDINGS/IMPRESSION: Homogeneous perfusion was seen bilaterally. Low probability of pulmonary emboli sm. ACT 112: Negative or not required by law. Electronically signed by: Khris Kirkland M.D. 08/13/2021 10:48 AM
[2021-08-13 11:00] LABS: Partial Thromboplastin Ratio 1.4; Partial Thromboplastin Time 38.1 Seconds (21.0-31.0)
--- NOTE | 2021-08-13 16:54 | Electrocardiogram Report ---
Test Reason : Blood Pressure : / mmHG Vent. Rate : 115 BPM Atrial Rate : 115 BPM P-R Int : 130 ms QRS Dur : 066 ms QT Int : 330 ms P-R-T Axes : 085 032 050 degrees QTc Int : 456 ms Poor data quality, interpretation may be adversely affected Sinus tachycardia Possible Inferior infarct (cited on or before 18-APR-2020) Abnormal ECG When compared with ECG of 18-APR-2020 00:07, T wave inversion no longer evident in Anterior leads Confirmed by Bryan Ruelas ([id number]) on 08/13/2021 4:53:38 PM Referred By: REFERRED SELF Confirmed By:Joshua Ruelas
--- NOTE | 2021-08-13 16:56 | Electrocardiogram Report ---
Test Reason : Blood Pressure : / mmHG Vent. Rate : 076 BPM Atrial Rate : 076 BPM P-R Int : 126 ms QRS Dur : 062 ms QT Int : 376 ms P-R-T Axes : 058 030 060 degrees QTc Int : 423 ms Normal sinus rhythm Low voltage QRS Possible Inferior infarct (cited on or before 18-APR-2020) Abnormal ECG When compared with ECG of 12-AUG-2021 19:46, (unconfirmed) Vent. rate has decreased BY 39 BPM T wave inversion now evident in Anterior leads Confirmed by Bryan Ruelas ([id number]) on 08/13/2021 4:56:16 PM Referred By: REFERRED SELF Confirmed By:Joshua Ruelas
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
[2021-08-14] MEDS ORDERED: POLYETHYLENE (MIRALAX) 17 GM PACK PO SCH (09:00)
[2021-08-14] MEDS ORDERED: DOCUSATE SODIUM/SENNA 50/8.6MG TAB PO SCH (09:00)
--- NOTE | 2021-08-18 15:34 | Hospitalist Progress Note ---
Date of Service August 18, 2021 Assessment & Plan Admission and Anticipated Discharge Date Admission Date: August 13, 2021 Subjective By CMS guidelines, a determination that the admission or continued stay is not medically necessary has been made by a member of the UR committee and a physician for this hospital stay, therefore a Code 44 will be completed and the Inpatient admission will be changed to outpatient.
== END 2021-08-13 18:37 | disposition home or self-care (01) | DRG 699 ==
LOC: ED 19:33 → EDINP 08-13 02:27 → INTOOBSV 08-13 02:27 → EDINP 08-13 09:50
DX: Z82.49 Family history of ischemic heart disease and other diseases of the circulatory system; I73.00 Raynaud's syndrome without gangrene; Z95.828 Presence of other vascular implants and grafts; V19.9XXS Pedal cyclist (driver) (passenger) injured in unspecified traffic accident, sequela; Z96.89 Presence of other specified functional implants; G82.20 Paraplegia, unspecified; K59.03 Drug induced constipation; Z85.43 Personal history of malignant neoplasm of ovary; R00.0 Tachycardia, unspecified; Z79.890 Hormone replacement therapy; N39.0 Urinary tract infection, site not specified; Z88.5 Allergy status to narcotic agent; Y92.009 Unspecified place in unspecified non-institutional (private) residence as the place of occurrence of the external cause; N31.9 Neuromuscular dysfunction of bladder, unspecified; T83.511A Infection and inflammatory reaction due to indwelling urethral catheter, initial encounter